=== PATIENT | female | born 1945 | race Caucasian/White ===

== ENCOUNTER → 2018-07-22 | Outpatient (CLI) | payer MEDICARE | END | disposition home or self-care (01) | LOC: PCVCCLINIC 13:00 | PROVIDERS: ATTEND Internal Medicine Cardiovascular Disease | DX: R55 Syncope and collapse (principal); I10 Essential (primary) hypertension; I35.0 Nonrheumatic aortic (valve) stenosis; E11.9 Type 2 diabetes mellitus without complications; E78.00 Pure hypercholesterolemia, unspecified; F10.10 Alcohol abuse, uncomplicated; Z82.49 Family history of ischemic heart disease and other diseases of the circulatory system; Z88.8 Allergy status to other drugs, medicaments and biological substances; Z79.899 Other long term (current) drug therapy | CPT/HCPCS: 80061; 93005; G0463 ==

== ENCOUNTER → 2018-07-27 | Outpatient (CLI) | payer MEDICARE, BC ==
--- NOTE | 2018-07-27 17:54 | PCVCIMAG ---
APPROVED REPORT Study performed: 07/27/2018 14:59:28 Exam: Stress Echocardiogram Indication: Hypertension, near syncope,dm,hlp,mild Patient Location: Echo lab Stress Nurse: Machelle Mondragon RN Room #: 2 Status: routine Ht: 5 ft 4 in HR: 73 bpm BP: 120/70 mmHg Rhythm: NSR Medical History Medical History: near syncope Cardiac Risk Factors: HTN, Hyperlipidemia Previous Cardiac Procedures: none Pretest Chest Pain Characteristics: No chest pain Procedure The patient underwent an Exercise Stress Test using the Jaswant Protocol. Blood pressure, heart rate, and EKG were monitored. An Echocardiogram was performed by ict support technicians in four stages in quad fashion. At peak stress, four selected images were obtained and placed side by side with resting images for comparison. Stress Test Details Stress Test: Exercise stress testing was performed using a Jaswant protocol. HR Resting HR: 73 bpmMax Heart Rate (APMHR): 149 bpm Max HR Achieved: 150 bpmTarget HR (85% APMHR): 126 bpm % of APMHR: 100 Recovery HR: 86 bpm HR response to stress: Normal HR response to stress BP Resting BP: 120/70 mmHg Max BP: 200/80 mmHg Recovery BP: 134/70 mmHg ECG Resting ECG: Sinus Rhythm Stress ECG: Sinus Rhythm Arrhythmia: Rare PVCs Recovery ECG: Sinus Rhythm Recovery ST Change: Non-ischemic Recovery Arrhythmia: None Clinical Reason for Termination: Maximal effort Stress Symptoms: weakness Exercise duration: 4 min 41 sec Highest Stage Achieved: Stage 2: 2.5 mph at 12% grade. Exercise capacity: 7 METs Overall Exercise Capacity for Age: Poor Scale: Sedentary Angina Score: None No complications. Stress ECG Conclusion The patient exercised according to the JASWANT protocol for 4:41 mins; achieving a work level of 7.0 METS. The resting heart rate of 73 bpm marisa to a maximum heart rate of 150 bpm. This value represent 100% of the maximal, age-predicted heart rate. The resting blood pressure of 120/70 mmHg, marisa to a maximum blood pressure of 200/80 mmHg. The exercise test was stopped due to fatigue. Pre-Stress Echo The resting Echocardiogram showed normal left ventricular contractility with an estimated Ejection Fraction of about 55-60%. Normal wall motion in all segments on baseline images. Post-Stress Echo The stress Echocardiogram showed normal left ventricular contractility with an estimated Ejection Fraction of about 65-70%. Normal augmentation of wall motion in all segments on post stress images. Clinical No clinical or ECG evidence for ischemia. Conclusion Clinical Response: Non-ischemic Exercise Capacity: Below Average Stress ECG Response: Non-ischemic Stress Echo Images: Non-ischemic No clinical, EKG or echocardiographic evidence for ischemia. No echocardiographic evidence for exercise induced ischemia. Normal stress echocardiogram with maximal exercise stress. <Conclusion> No clinical, EKG or echocardiographic evidence for ischemia. No echocardiographic evidence for exercise induced ischemia. Normal stress echocardiogram with maximal exercise stress.
== END | disposition home or self-care (01) ==
LOC: PCVCIMAG 15:49
PROVIDERS: ATTEND Internal Medicine Cardiovascular Disease
DX: I10 Essential (primary) hypertension (principal); I35.0 Nonrheumatic aortic (valve) stenosis; R55 Syncope and collapse; E11.9 Type 2 diabetes mellitus without complications
CPT/HCPCS: 93325; 93351

== ENCOUNTER → 2019-05-16 | Outpatient (CLI) | payer BC | END | disposition home or self-care (01) | LOC: PCVCCLINIC 14:00 | PROVIDERS: ATTEND Internal Medicine Cardiovascular Disease | DX: I10 Essential (primary) hypertension (principal); E78.00 Pure hypercholesterolemia, unspecified; I35.0 Nonrheumatic aortic (valve) stenosis; I87.2 Venous insufficiency (chronic) (peripheral) | CPT/HCPCS: 36415; 80061; 93005; G0463 ==